=== PATIENT | female | born 1955 | race Caucasian/White ===

== ENCOUNTER 2021-06-22 14:14 | Inpatient (IN) ==
[2021-06-22] MEDS ORDERED: 0.9 % Sodium Chloride 1,000 ML IVC ONE (14:22)
[2021-06-22 14:57] LABS: Hematocrit 33.3 % (35.3-44.9); Hemoglobin 10.8 g/dL (11.5-15.4); Mean Corpuscular HGB Conc 32.4 g/dL (31.6-35.5); Mean Corpuscular Hemoglobin 27.6 pg (28.0-33.3); Mean Corpuscular Volume 85.2 fL (83.0-100.0); Mean Platelet Volume 9.8 fL (9.4-12.4); Nucleated Red Blood Cells 0.1 /100 WBC (0); Platelet Count 326 K/mcL (140-400); Red Blood Count 3.91 M/mcL (3.82-4.97); Red Cell Distribution Width 13.5 % (11.5-14.5); White Blood Count 15.5 K/mcL (4.3-11.1)
[2021-06-22 15:16] LABS: Lymphocytes # 0.9 K/mcL (0.6-4.6); Monocytes # 0.6 K/mcL (0.0-1.3); Platelet Estimate Normal (Normal)
[2021-06-22 15:19] LABS: Alanine Aminotransferase 23 Units/L (7-52); Albumin 2.8 g/dL (3.5-5.7); Albumin/Globulin Ratio 0.8 (1.1-2.2); Alkaline Phosphatase 142 Units/L (34-104); Aspartate Amino Transferase 55 Units/L (13-39); BUN/Creatinine Ratio 26 (6-26); Bilirubin,Direct 0.8 mg/dL (0.0-0.2); Bilirubin,Indirect 0.7 mg/dL (0.0-1.0); Bilirubin,Total 1.5 mg/dL (0.3-1.0); Blood Urea Nitrogen 48 mg/dL (8-23); Calcium 8.9 mg/dL (8.6-10.3); Carbon Dioxide 25 mEq/L (23-29); Chloride 94 mEq/L (98-107); Globulin 3.7 g/dL (2.4-3.5); Glucose 94 mg/dL (70-105); Osmolality,Calculated 284 (280-300); Sodium 131 mEq/L (136-145); Total Protein 6.5 g/dL (6.4-8.9); Troponin I < 0.03 ng/mL (< 0.04); eGFR For African Americans 34 (> 60); eGFR For Non-African Americans 28 (> 60)
[2021-06-22] MEDS ORDERED: *HR* Heparin 5,000 UNIT/ML VIAL IVP PRN ×2 (16:01)
[2021-06-22] MEDS ORDERED: cefTRIAXone 1,000 MG in 0.9 % Sodium Chloride Mini Bag 100 ML IVPB ONE (16:01)
[2021-06-22] MEDS ORDERED: *HR* Heparin 5,000 UNIT/ML VIAL IVP ONE (16:01)
[2021-06-22] MEDS ORDERED: Azithromycin 500 MG in 0.9 % Sodium Chloride 250 ML IVPB ONE (16:02)
[2021-06-22 16:30] LABS: Amorphous Sediment,Urine Few per hpf (None-Few); Bacteria,Urine Few per hpf (None-Few); Bilirubin,Urine Negative (Negative); Blood,Urine Moderate (Negative); Clarity,Urine Turbid (Clear); Color,Urine Yellow (Yellow); Glucose,Urine (UA) Normal (Normal); Hyaline Casts,Urine Few per lpf (None Seen); Ketones,Urine Negative (Negative); Leukocyte Esterase,Urine Negative (Negative); Nitrite,Urine Negative (Negative); PH,Urine 5.5 pH Units (5.0-8.0); Protein,Urine 30 mg/dL (Neg-Trace); RBC,Urine 0-3 per hpf (0-3); Specific Gravity,Urine 1.016 (1.010-1.025); Squamous Epithelial Cell,Urine Few per hpf (None-Few); Urobilinogen,Urine Normal (Normal); WBC,Urine 0-3 per hpf (0-3)
[2021-06-22 16:31] LABS: Amphetamine Screen,Urine Negative ng/mL (Cutoff=1000); Barbiturate Screen,Urine Negative ng/mL (Cutoff=200); Benzodiazepines Screen,Urine Positive ng/mL (Cutoff=200); Cannabinoid Screen,Urine Positive ng/mL (Cutoff = 50); Cocaine Screen,Urine Negative ng/mL (Cutoff= 300); Opiate Screen,Urine Positive ng/mL (Cutoff=300); Phencyclidine Screen,Urine Negative ng/mL (Cutoff=25)
[2021-06-22 16:54] LABS: Influenza A PCR Negative (Negative); Influenza B PCR Negative (Negative); Resp. Syncytial Virus PCR Negative (Negative)
[2021-06-22 16:56] LABS: SARS-CoV-2 by PCR (In House) Negative (Negative)
[2021-06-22] MEDS: Heparin 25,000UNIT/250ML 1/2NS 25,000 UNIT/250 ML IV.SOLN IVC SCH (17:08)
[2021-06-22 17:21] LABS: Hematocrit 34.4 % (35.3-44.9); Mean Corpuscular Hemoglobin 27.2 pg (28.0-33.3); Mean Corpuscular Volume 85.1 fL (83.0-100.0); Mean Platelet Volume 9.6 fL (9.4-12.4); Platelet Count 312 K/mcL (140-400); Red Blood Count 4.04 M/mcL (3.82-4.97); Red Cell Distribution Width 13.4 % (11.5-14.5); White Blood Count 15.6 K/mcL (4.3-11.1)
[2021-06-22 17:33] LABS: Heparin anti-factor XA UFH < 0.04 IU/mL (0.30-0.70); INR 1.3; Prothrombin Time 14.2 Seconds (9.4-12.1)
[2021-06-22] MEDS ORDERED: MOM Conc 10 ML UD.LIQ PO PRN (18:01)
[2021-06-22] MEDS ORDERED: Acetaminophen 325 MG TABLET PO PRN (18:01)
[2021-06-22] MEDS ORDERED: Naloxone 0.4 MG/ML INJ IVP PRN (18:01)
[2021-06-22] MEDS ORDERED: Ondansetron 4 MG/2 ML VIAL IVP PRN (18:01)
[2021-06-22 18:12] LABS: Creatine Kinase 883 Units/L (30-223)
[2021-06-22] MEDS: carvediloL 6.25 MG TABLET PO SCH (23:16)
[2021-06-22] MEDS: ALPRAZolam 1 MG TABLET PO SCH (23:16)
[2021-06-23 00:37] LABS: Basophils % 0.1 %; Hematocrit 32.7 % (35.3-44.9); Hemoglobin 10.3 g/dL (11.5-15.4); Immature Granulocytes % 4.3 % (0-4); Lymphocytes # 0.9 K/mcL (0.6-4.6); Lymphocytes % 3.7 %; Mean Corpuscular HGB Conc 31.5 g/dL (31.6-35.5); Mean Corpuscular Hemoglobin 27.1 pg (28.0-33.3); Mean Corpuscular Volume 86.1 fL (83.0-100.0); Mean Platelet Volume 9.8 fL (9.4-12.4); Monocytes # 0.4 K/mcL (0.0-1.3); Monocytes % 1.7 %; Neutrophils # 21.4 K/mcL (1.6-8.9); Platelet Count 283 K/mcL (140-400); Red Cell Distribution Width 13.6 % (11.5-14.5); Segmented Neutrophils % 90.2 %
[2021-06-23 00:41] LABS: White Blood Count 23.7 K/mcL (4.3-11.1)
[2021-06-23 00:53] LABS: Albumin 2.8 g/dL (3.5-5.7); Albumin/Globulin Ratio 0.7 (1.1-2.2); Bilirubin,Total 1.1 mg/dL (0.3-1.0); Calcium 8.8 mg/dL (8.6-10.3); Globulin 3.8 g/dL (2.4-3.5); Magnesium 2.1 mg/dL (1.6-2.6); Potassium 3.7 mEq/L (3.5-5.1); Total Protein 6.6 g/dL (6.4-8.9)
[2021-06-23 01:02] LABS: Platelet Estimate Normal (Normal)
[2021-06-23] MEDS: 0.9 % Sodium Chloride 1,000 ML IVC SCH ×3 (01:32→22:26)
[2021-06-23 05:50] LABS: Acinetobacter baumannii by PCR Not Detected (Not Detect); Candida albicans by PCR Not Detected (Not Detect); Candida glabrata by PCR Not Detected (Not Detect); Candida krusei by PCR Not Detected (Not Detect); Candida parapsilosis by PCR Not Detected (Not Detect); Candida tropicalis by PCR Not Detected (Not Detect); Enterobacter cloacae Cmplx PCR Not Detected (Not Detect); Enterobacteriaceae by PCR Not Detected (Not Detect); Enterococcus by PCR Not Detected (Not Detect); Escherichia coli by PCR Not Detected (Not Detect); Klebsiella oxytoca by PCR Not Detected (Not Detect); Klebsiella pneumoniae by PCR Not Detected (Not Detect); Proteus by PCR Not Detected (Not Detect); Pseudomonas aeruginosa by PCR Not Detected (Not Detect); Serratia marcescens by PCR Not Detected (Not Detect); Staphylococcus aureus by PCR Not Detected (Not Detect); Staphylococcus by PCR Not Detected (Not Detect); Streptococcus agalactiae(B)PCR Not Detected (Not Detect); Streptococcus pneumoniae PCR DETECTED (Not Detect); Streptococcus pyogenes (A) PCR Not Detected (Not Detect)
[2021-06-23] MEDS: ALPRAZolam 1 MG TABLET PO SCH ×3 (09:24→21:10)
[2021-06-23] MEDS: carvediloL 6.25 MG TABLET PO SCH ×2 (09:24→18:28)
[2021-06-23] MEDS: Aspirin Enteric Coated 81 MG Tablet PO SCH (09:24)
[2021-06-23] MEDS: Isosorbide MONOnitrate (24 HR) 30 MG TAB.ER.24H PO SCH (09:24)
[2021-06-23] MEDS: PARoxetine 20 MG TABLET PO SCH (09:24)
[2021-06-23] MEDS: Cefepime HCl 2,000 MG in 0.9 % Sodium Chloride Mini Bag 100 ML IVPB SCH ×2 (09:25→15:08)
[2021-06-23 11:00] LABS: Source,Synovial Fluid left knee
[2021-06-23 12:30] LABS: Appearance,Synovial Fluid Cloudy (Clear-Hazy); Color,Synovial Fluid Straw (Straw)
[2021-06-23] MEDS ORDERED: Perflutren Lipid Microsphere 1.3 ML in 0.9 % Sodium Chloride 8.7 ML IVP PRN (14:31)
[2021-06-23] MEDS ORDERED: Azithromycin 500 MG in 0.9 % Sodium Chloride 250 ML IVPB SCH (17:00)
[2021-06-23] MEDS ORDERED: cefTRIAXone 2,000 MG in Water for inj. (sterile) 10 ML IVP SCH (18:00)
[2021-06-23] MEDS: Heparin 25,000UNIT/250ML 1/2NS 25,000 UNIT/250 ML IV.SOLN IVC SCH (18:28)
[2021-06-24] MEDS: Cefepime HCl 2,000 MG in 0.9 % Sodium Chloride Mini Bag 100 ML IVPB SCH ×2 (00:03→07:32)
[2021-06-24 02:48] LABS: Basophils % 0.7 %; Lymphocytes % 4.6 %; Nucleated Red Blood Cells 0.1 /100 WBC (0)
[2021-06-24 02:49] LABS: Basophils # 0.2 K/mcL (0.0-0.2); Hematocrit 24.3 % (35.3-44.9); Hemoglobin 7.9 g/dL (11.5-15.4); Immature Granulocytes % 8.8 % (0-4); Lymphocytes # 1.2 K/mcL (0.6-4.6); Mean Corpuscular HGB Conc 32.5 g/dL (31.6-35.5); Mean Corpuscular Hemoglobin 27.7 pg (28.0-33.3); Mean Corpuscular Volume 85.3 fL (83.0-100.0); Mean Platelet Volume 9.7 fL (9.4-12.4); Monocytes # 0.6 K/mcL (0.0-1.3); Monocytes % 2.3 %; Neutrophils # 22.2 K/mcL (1.6-8.9); Platelet Count 247 K/mcL (140-400); Red Blood Count 2.85 M/mcL (3.82-4.97); Red Cell Distribution Width 13.9 % (11.5-14.5); Segmented Neutrophils % 83.6 %; White Blood Count 26.6 K/mcL (4.3-11.1)
[2021-06-24] MEDS: 0.9 % Sodium Chloride 1,000 ML IVC SCH ×2 (02:53→20:51)
[2021-06-24 02:57] LABS: Albumin 2.1 g/dL (3.5-5.7); Albumin/Globulin Ratio 0.7 (1.1-2.2); Bilirubin,Total 0.7 mg/dL (0.3-1.0); Calcium 7.4 mg/dL (8.6-10.3); Globulin 3.2 g/dL (2.4-3.5); Potassium 3.3 mEq/L (3.5-5.1); Total Protein 5.3 g/dL (6.4-8.9)
[2021-06-24 03:19] LABS: Platelet Estimate Normal (Normal)
[2021-06-24] MEDS ORDERED: METHYLENE BLUE IR ONE (08:45)
[2021-06-24] MEDS ORDERED: SODIUM CHLORIDE IR ONE (08:45)
[2021-06-24] MEDS: carvediloL 6.25 MG TABLET PO SCH ×2 (10:54→20:46)
[2021-06-24] MEDS: Aspirin Enteric Coated 81 MG Tablet PO SCH (12:01)
[2021-06-24] MEDS: Isosorbide MONOnitrate (24 HR) 30 MG TAB.ER.24H PO SCH (12:01)
[2021-06-24] MEDS: PARoxetine 20 MG TABLET PO SCH (12:01)
[2021-06-24] MEDS: ALPRAZolam 1 MG TABLET PO SCH ×3 (12:02→20:46)
[2021-06-24] MEDS ORDERED: Tobramycin Sulf (Sterile) 1.2 GM VIAL ONE ×2 (12:19→13:55)
[2021-06-24] MEDS ORDERED: Vancomycin 1,000 MG VIAL ONE ×2 (12:19→12:20)
[2021-06-24] MEDS ORDERED: Heparin 1,000 UNITS/500 mL 500 ML ONE (13:04)
[2021-06-24] MEDS ORDERED: *HR* Succinylcholine 200 MG/10 ML VIAL IVP ONE (13:56)
[2021-06-24] MEDS ORDERED: Sugammadex Sodium 200 MG/2 ML VIAL IV ONE (13:56)
[2021-06-24] MEDS ORDERED: *HR* Rocuronium Bromide 50 MG/5 ML VIAL ONE ×2 (13:56→18:32)
[2021-06-24] MEDS ORDERED: Lidocaine HCL 4 ML Topical Solution (Laryng-O-Jet Kit Sterile Pak) TP ONE (13:56)
[2021-06-24] MEDS ORDERED: *HR* Phenylephrine 10 MG/ML VIAL ONE (13:56)
[2021-06-24] MEDS ORDERED: Ondansetron 4 MG/2 ML VIAL ONE (13:56)
[2021-06-24] MEDS ORDERED: *HR* Magnesium Sulfate 1 GM/2 ML VIAL ONE (13:56)
[2021-06-24] MEDS ORDERED: Lidocaine -MPF 2% 5 ML VIAL ONE (13:56)
[2021-06-24] MEDS ORDERED: *HR* FentaNYL (PF) 100 MCG/2 ML VIAL ONE (13:57)
[2021-06-24] MEDS ORDERED: *HR* Midazolam HCl 2 MG/2 ML VIAL ONE (13:57)
[2021-06-24] MEDS ORDERED: dexmedeTOMIDine in 0.9 % NaCL 80 MCG/20 ML MLS ONE (13:58)
[2021-06-24] MEDS ORDERED: 0.9 % Sodium Chloride 300 ML ONE (13:59)
[2021-06-24] MEDS ORDERED: *HR* Propofol 200 MG/20 ML VIAL IVP ONE (14:20)
[2021-06-24] MEDS ORDERED: Ipratropium/Albuterol Neb 3 ML IH ONE (14:33)
[2021-06-24] MEDS ORDERED: Aminophylline 125 MG/30 ML SYRINGE IVP ONE (14:34)
[2021-06-24] MEDS ORDERED: SODIUM CHLORIDE 0.9% IVPB ONE (14:45)
[2021-06-24] MEDS ORDERED: AMINOPHYLLINE IVPB ONE (14:45)
[2021-06-24] MEDS ORDERED: Hydrogen Peroxide (Sterile) 473 ML ONE (15:00)
[2021-06-24] MEDS ORDERED: Albumin Human 5% 25.0 GM/500 ML IV.SOLN ONE (15:04)
[2021-06-24] MEDS ORDERED: Ethanol\\Acetic Acid\\Na Ace\\Ben 1,000 ML IRRIG.SOLN IR ONE ×2 (15:05→15:07)
[2021-06-24 15:06] LABS: ABG Base Excess -5 mEq/L (-2 to 3); ABG Chloride 106 mEq/L (98-107); ABG Glucose 106 mg/dL (60-95); ABG HCO3 19 mEq/L (21-27); ABG Ionized Calcium 1.11 mmol/L (1.15-1.35); ABG Oxygen Saturation 99 % (95-98); ABG PCO2 30 mmHg (35-45); ABG PH 7.42 pH Units (7.32-7.45); ABG PO2 119 mmHg (85-104); ABG TCO2 20 mEq/L (20-26)
[2021-06-24] MEDS ORDERED: Tranexamic Acid 1,000 MG/10 ML VIAL ONE ×2 (16:25→16:32)
[2021-06-24 18:12] LABS: Hematocrit 21.6 % (35.3-44.9); Hemoglobin 6.6 g/dL (11.5-15.4)
[2021-06-24] MEDS: cefTRIAXone 2,000 MG in 0.9 % Sodium Chloride Mini Bag 100 ML IVPB SCH (20:46)
[2021-06-24] MEDS ORDERED: Artificial Tears SOLN 15 ML BOTTLE BOTH EYES PRN (21:11)
[2021-06-24] MEDS ORDERED: Dexmedetomidine HCl 400 MCG/100 ML MLS IVC SCH (21:15)
[2021-06-24] MEDS: FentaNYL (PF) 1,000 MCG/100 ML IV.SOLN IVC SCH (21:22)
[2021-06-24 21:29] LABS: Hematocrit 24.2 % (35.3-44.9); Hemoglobin 7.6 g/dL (11.5-15.4)
[2021-06-25] MEDS: Artificial Tears SOLN 15 ML BOTTLE BOTH EYES SCH ×6 (00:25→20:07)
[2021-06-25 03:36] LABS: ABG Base Excess -6 mEq/L (-2 to 3); ABG HCO3 20 mEq/L (21-27); ABG Oxygen Saturation 96 % (95-98); ABG PCO2 38 mmHg (35-45); ABG PH 7.32 pH Units (7.32-7.45); ABG PO2 86 mmHg (85-104); ABG TCO2 21 mEq/L (20-26); Blood Gas Modality ASSIST CONTROL; Blood Gas VT 370 cc
[2021-06-25 04:10] LABS: Basophils # 0.2 K/mcL (0.0-0.2); Basophils % 0.7 %; Hematocrit 21.3 % (35.3-44.9); Hemoglobin 6.7 g/dL (11.5-15.4); Immature Granulocytes % 12.7 % (0-4); Lymphocytes % 4.7 %; Mean Corpuscular HGB Conc 31.5 g/dL (31.6-35.5); Mean Corpuscular Hemoglobin 28.6 pg (28.0-33.3); Monocytes # 0.7 K/mcL (0.0-1.3); Neutrophils # 19.3 K/mcL (1.6-8.9); Nucleated Red Blood Cells 0.1 /100 WBC (0); Platelet Count 163 K/mcL (140-400); Red Blood Count 2.34 M/mcL (3.82-4.97); Red Cell Distribution Width 14.4 % (11.5-14.5); Segmented Neutrophils % 78.9 %; White Blood Count 24.5 K/mcL (4.3-11.1)
[2021-06-25 04:14] LABS: Lymphocytes # 1.2 K/mcL (0.6-4.6)
[2021-06-25 04:26] LABS: Calcium 7.6 mg/dL (8.6-10.3); Potassium 3.8 mEq/L (3.5-5.1)
[2021-06-25 04:55] LABS: Platelet Estimate Normal (Normal)
[2021-06-25] MEDS: cefTRIAXone 2,000 MG in 0.9 % Sodium Chloride Mini Bag 100 ML IVPB SCH (05:14)
[2021-06-25] MEDS ORDERED: 0.9 % Sodium Chloride 250 ML ONE (05:43)
[2021-06-25] MEDS ORDERED: Povidone-Iodine 45 ML, Sodium Chloride IRRigation 1,000 ML IR ONE (06:00)
[2021-06-25] MEDS: 0.9 % Sodium Chloride 1,000 ML IVC SCH ×2 (07:35→08:18)
[2021-06-25] MEDS: carvediloL 6.25 MG TABLET PO SCH ×2 (08:00→17:46)
[2021-06-25] MEDS: Chlorhexidine Rinse 15 ML MOUTHWASH MM SCH ×2 (08:18→19:55)
[2021-06-25] MEDS: Pantoprazole 40 MG VIAL IVP SCH (08:18)
[2021-06-25] MEDS: ALPRAZolam 1 MG TABLET PO SCH ×3 (09:00→19:56)
[2021-06-25] MEDS: Isosorbide MONOnitrate (24 HR) 30 MG TAB.ER.24H PO SCH (11:45)
[2021-06-25] MEDS: PARoxetine 20 MG TABLET PO SCH (11:45)
[2021-06-25] MEDS: Aspirin Enteric Coated 81 MG Tablet PO SCH (11:45)
[2021-06-25] MEDS ORDERED: Cefepime HCl 2,000 MG in Water for inj. (sterile) 20 ML IVP SCH (12:00)
[2021-06-25 12:28] LABS: Hematocrit 27.4 % (35.3-44.9); Mean Corpuscular HGB Conc 31.4 g/dL (31.6-35.5); Mean Corpuscular Hemoglobin 29.1 pg (28.0-33.3); Mean Corpuscular Volume 92.6 fL (83.0-100.0); Mean Platelet Volume 9.9 fL (9.4-12.4); Nucleated Red Blood Cells 0.2 /100 WBC (0); Platelet Count 168 K/mcL (140-400); Red Blood Count 2.96 M/mcL (3.82-4.97); Red Cell Distribution Width 14.2 % (11.5-14.5); White Blood Count 23.3 K/mcL (4.3-11.1)
[2021-06-25 12:29] LABS: Hemoglobin 8.6 g/dL (11.5-15.4)
[2021-06-25 12:50] LABS: Lymphocytes # 0.9 K/mcL (0.6-4.6); Neutrophils # 21.4 K/mcL (1.6-8.9)
[2021-06-25 12:51] LABS: Platelet Estimate Normal (Normal)
[2021-06-25 12:54] LABS: Toxic Granulation Present (Not Present)
[2021-06-25] MEDS: cefTRIAXone 2,000 MG in Water for inj. (sterile) 20 ML IVP SCH (17:45)
[2021-06-26] MEDS: Artificial Tears SOLN 15 ML BOTTLE BOTH EYES SCH (00:56)
[2021-06-26 04:59] LABS: Hematocrit 26.6 % (35.3-44.9); Hemoglobin 8.6 g/dL (11.5-15.4); Mean Corpuscular HGB Conc 32.3 g/dL (31.6-35.5); Mean Corpuscular Hemoglobin 29.6 pg (28.0-33.3); Mean Corpuscular Volume 91.4 fL (83.0-100.0); Mean Platelet Volume 10.1 fL (9.4-12.4); Nucleated Red Blood Cells 0.2 /100 WBC (0); Platelet Count 170 K/mcL (140-400); Red Blood Count 2.91 M/mcL (3.82-4.97); Red Cell Distribution Width 14.6 % (11.5-14.5); White Blood Count 24.9 K/mcL (4.3-11.1)
[2021-06-26 05:16] LABS: Calcium 7.5 mg/dL (8.6-10.3); Potassium 3.2 mEq/L (3.5-5.1)
[2021-06-26 05:26] LABS: Lymphocytes # 2.5 K/mcL (0.6-4.6); Monocytes # 0.5 K/mcL (0.0-1.3); Neutrophils # 20.4 K/mcL (1.6-8.9); Toxic Granulation Present (Not Present)
[2021-06-26 05:28] LABS: Platelet Estimate Normal (Normal)
[2021-06-26] MEDS: cefTRIAXone 2,000 MG in Water for inj. (sterile) 20 ML IVP SCH ×2 (06:17→17:47)
[2021-06-26] MEDS: FentaNYL (PF) 1,000 MCG/100 ML IV.SOLN IVC SCH (06:17)
[2021-06-26] MEDS ORDERED: Potassium Chloride Elixir 20 MEQ/15 ML UDC PO SCH ×2 (07:20→21:00)
[2021-06-26] MEDS: ALPRAZolam 1 MG TABLET PO SCH ×3 (07:50→21:21)
[2021-06-26] MEDS: carvediloL 6.25 MG TABLET PO SCH ×2 (07:52→17:44)
[2021-06-26] MEDS: Aspirin Enteric Coated 81 MG Tablet PO SCH (07:53)
[2021-06-26] MEDS: Chlorhexidine Rinse 15 ML MOUTHWASH MM SCH ×2 (07:53→21:21)
[2021-06-26] MEDS: PARoxetine 20 MG TABLET PO SCH (07:53)
[2021-06-26] MEDS: Isosorbide MONOnitrate (24 HR) 30 MG TAB.ER.24H PO SCH (07:53)
[2021-06-26] MEDS: Pantoprazole 40 MG VIAL IVP SCH (07:54)
[2021-06-26] MEDS ORDERED: *HR* Enoxaparin 40 MG/0.4 ML SYRINGE SQ ONE ×2 (09:49→10:15)
[2021-06-26] MEDS ORDERED: Potassium Chloride Elixir 20 MEQ/15 ML UDC PO ONE (09:53)
[2021-06-26 10:46] LABS: VBG Ionized Calcium 1.13 mmol/L (1.15-1.35)
[2021-06-26 11:06] LABS: Albumin 2.3 g/dL (3.5-5.7); Albumin/Globulin Ratio 0.7 (1.1-2.2); Bilirubin,Direct 0.2 mg/dL (0.0-0.2); Bilirubin,Indirect 0.2 mg/dL (0.0-1.0); Bilirubin,Total 0.4 mg/dL (0.3-1.0); Globulin 3.1 g/dL (2.4-3.5); Total Protein 5.4 g/dL (6.4-8.9)
[2021-06-26] MEDS ORDERED: Ondansetron 4 MG/2 ML VIAL IVP PRN (19:16)
[2021-06-26] MEDS ORDERED: FentaNYL (PF) 1,000 MCG/100 ML IV.SOLN IVC SCH (19:16)
[2021-06-26] MEDS ORDERED: Perflutren Lipid Microsphere 1.3 ML in 0.9 % Sodium Chloride 8.7 ML IVP PRN (19:16)
[2021-06-26] MEDS ORDERED: Naloxone 0.4 MG/ML INJ IVP PRN (19:16)
[2021-06-26] MEDS ORDERED: Artificial Tears SOLN 15 ML BOTTLE BOTH EYES PRN (19:16)
[2021-06-26] MEDS ORDERED: MOM Conc 10 ML UD.LIQ PO PRN (19:16)
[2021-06-27 00:53] LABS: Red Cell Distribution Width 14.6 % (11.5-14.5)
[2021-06-27 00:54] LABS: Hemoglobin 8.2 g/dL (11.5-15.4); Mean Corpuscular HGB Conc 31.5 g/dL (31.6-35.5); Mean Corpuscular Hemoglobin 29.2 pg (28.0-33.3); Mean Corpuscular Volume 92.5 fL (83.0-100.0); Mean Platelet Volume 10.1 fL (9.4-12.4); Platelet Count 167 K/mcL (140-400); Red Blood Count 2.81 M/mcL (3.82-4.97); White Blood Count 26.3 K/mcL (4.3-11.1)
[2021-06-27 01:17] LABS: Calcium 7.3 mg/dL (8.6-10.3); Potassium 3.6 mEq/L (3.5-5.1)
[2021-06-27] MEDS ORDERED: *HR* Enoxaparin 40 MG/0.4 ML SYRINGE SQ SCH (06:00)
[2021-06-27] MEDS: *HR* Enoxaparin 40 MG/0.4 ML SYRINGE SQ SCH (06:53)
[2021-06-27] MEDS: cefTRIAXone 2,000 MG in Water for inj. (sterile) 20 ML IVP SCH ×2 (06:53→17:22)
[2021-06-27] MEDS: ALPRAZolam 1 MG TABLET PO SCH ×3 (08:37→22:04)
[2021-06-27] MEDS: Aspirin Enteric Coated 81 MG Tablet PO SCH (08:37)
[2021-06-27] MEDS: carvediloL 6.25 MG TABLET PO SCH ×2 (08:37→17:22)
[2021-06-27] MEDS: Chlorhexidine Rinse 15 ML MOUTHWASH MM SCH ×2 (08:37→22:08)
[2021-06-27] MEDS: Isosorbide MONOnitrate (24 HR) 30 MG TAB.ER.24H PO SCH (08:37)
[2021-06-27] MEDS: PARoxetine 20 MG TABLET PO SCH (08:37)
[2021-06-27] MEDS ORDERED: Pantoprazole 40 MG VIAL IVP SCH (09:00)
[2021-06-27] MEDS: Acetaminophen 325 MG TABLET PO PRN (18:24)
[2021-06-28 05:20] LABS: Hematocrit 26.7 % (35.3-44.9); Hemoglobin 8.5 g/dL (11.5-15.4); Mean Corpuscular HGB Conc 31.8 g/dL (31.6-35.5); Mean Corpuscular Hemoglobin 29.1 pg (28.0-33.3); Mean Corpuscular Volume 91.4 fL (83.0-100.0); Mean Platelet Volume 10.7 fL (9.4-12.4); Platelet Count 202 K/mcL (140-400); Red Blood Count 2.92 M/mcL (3.82-4.97); Red Cell Distribution Width 14.7 % (11.5-14.5); White Blood Count 24.3 K/mcL (4.3-11.1)
[2021-06-28 05:33] LABS: BUN/Creatinine Ratio 17 (6-26); Blood Urea Nitrogen 18 mg/dL (8-23); Calcium 7.2 mg/dL (8.6-10.3); Carbon Dioxide 22 mEq/L (23-29); Chloride 102 mEq/L (98-107); Glucose 79 mg/dL (70-105); Magnesium 1.4 mg/dL (1.6-2.6); Osmolality,Calculated 271 (280-300); Phosphorous 2.4 mg/dL (2.7-4.5); Potassium 3.4 mEq/L (3.5-5.1); Sodium 130 mEq/L (136-145); eGFR For African Americans > 60 (> 60); eGFR For Non-African Americans 52 (> 60)
[2021-06-28] MEDS: cefTRIAXone 2,000 MG in Water for inj. (sterile) 20 ML IVP SCH (06:28)
[2021-06-28] MEDS: *HR* Enoxaparin 40 MG/0.4 ML SYRINGE SQ SCH (06:28)
[2021-06-28] MEDS ORDERED: Potassium Phosphate 44 MEQ in 0.9 % Sodium Chloride 250 ML IVPB ONE (07:17)
[2021-06-28] MEDS: PARoxetine 20 MG TABLET PO SCH (08:10)
[2021-06-28] MEDS: ALPRAZolam 1 MG TABLET PO SCH ×3 (08:10→21:34)
[2021-06-28] MEDS: carvediloL 6.25 MG TABLET PO SCH ×2 (08:10→15:46)
[2021-06-28] MEDS: Chlorhexidine Rinse 15 ML MOUTHWASH MM SCH ×2 (08:10→21:34)
[2021-06-28] MEDS: Isosorbide MONOnitrate (24 HR) 30 MG TAB.ER.24H PO SCH (08:10)
[2021-06-28] MEDS: Aspirin Enteric Coated 81 MG Tablet PO SCH (08:10)
[2021-06-28] MEDS: Acetaminophen 325 MG TABLET PO PRN (15:46)
[2021-06-29 05:09] LABS: Hematocrit 24.7 % (35.3-44.9); Hemoglobin 8.1 g/dL (11.5-15.4); Mean Corpuscular HGB Conc 32.8 g/dL (31.6-35.5); Mean Corpuscular Hemoglobin 29.3 pg (28.0-33.3); Mean Corpuscular Volume 89.5 fL (83.0-100.0); Mean Platelet Volume 10.4 fL (9.4-12.4); Platelet Count 226 K/mcL (140-400); Red Blood Count 2.76 M/mcL (3.82-4.97); Red Cell Distribution Width 14.7 % (11.5-14.5); White Blood Count 20.8 K/mcL (4.3-11.1)
[2021-06-29 05:36] LABS: BUN/Creatinine Ratio 17 (6-26); Blood Urea Nitrogen 17 mg/dL (8-23); Carbon Dioxide 21 mEq/L (23-29); Chloride 99 mEq/L (98-107); Glucose 120 mg/dL (70-105); Magnesium 1.7 mg/dL (1.6-2.6); Osmolality,Calculated 267 (280-300); Phosphorous 3.6 mg/dL (2.7-4.5); Potassium 3.4 mEq/L (3.5-5.1); Sodium 127 mEq/L (136-145); eGFR For African Americans > 60 (> 60); eGFR For Non-African Americans 56 (> 60)
[2021-06-29] MEDS: *HR* Enoxaparin 40 MG/0.4 ML SYRINGE SQ SCH (06:19)
[2021-06-29] MEDS: cefTRIAXone 2,000 MG in 0.9 % Sodium Chloride Mini Bag 100 ML IVPB SCH (08:44)
[2021-06-29] MEDS: ALPRAZolam 1 MG TABLET PO SCH ×3 (08:47→21:00)
[2021-06-29] MEDS: Aspirin Enteric Coated 81 MG Tablet PO SCH (08:47)
[2021-06-29] MEDS: carvediloL 6.25 MG TABLET PO SCH ×2 (08:47→17:41)
[2021-06-29] MEDS: Isosorbide MONOnitrate (24 HR) 30 MG TAB.ER.24H PO SCH (08:48)
[2021-06-29] MEDS: PARoxetine 20 MG TABLET PO SCH (10:02)
[2021-06-29] MEDS: Chlorhexidine Rinse 15 ML MOUTHWASH MM SCH ×2 (13:01→21:01)
[2021-06-29] MEDS: Sennosides/Docusate Sodium TABLET PO SCH (21:00)
[2021-06-29] MEDS: Acetaminophen 325 MG TABLET PO PRN (21:01)
[2021-06-30] MEDS: *HR* Enoxaparin 40 MG/0.4 ML SYRINGE SQ SCH (05:30)
[2021-06-30] MEDS: ALPRAZolam 1 MG TABLET PO SCH ×3 (07:37→21:04)
[2021-06-30] MEDS: Sennosides/Docusate Sodium TABLET PO SCH ×2 (07:37→21:04)
[2021-06-30] MEDS: cefTRIAXone 2,000 MG in 0.9 % Sodium Chloride Mini Bag 100 ML IVPB SCH (07:37)
[2021-06-30] MEDS: PARoxetine 20 MG TABLET PO SCH (07:37)
[2021-06-30] MEDS: Isosorbide MONOnitrate (24 HR) 30 MG TAB.ER.24H PO SCH (07:37)
[2021-06-30] MEDS: Chlorhexidine Rinse 15 ML MOUTHWASH MM SCH ×2 (07:37→21:04)
[2021-06-30] MEDS: carvediloL 6.25 MG TABLET PO SCH ×2 (07:37→16:42)
[2021-06-30] MEDS: Aspirin Enteric Coated 81 MG Tablet PO SCH (07:37)
[2021-06-30 08:29] LABS: Hematocrit 27.7 % (35.3-44.9); Hemoglobin 8.9 g/dL (11.5-15.4); Mean Corpuscular HGB Conc 32.1 g/dL (31.6-35.5); Mean Corpuscular Hemoglobin 29.7 pg (28.0-33.3); Mean Corpuscular Volume 92.3 fL (83.0-100.0); Mean Platelet Volume 10.3 fL (9.4-12.4); Platelet Count 298 K/mcL (140-400); Red Cell Distribution Width 14.7 % (11.5-14.5); White Blood Count 19.6 K/mcL (4.3-11.1)
[2021-06-30 08:43] LABS: Magnesium 1.5 mg/dL (1.6-2.6); Phosphorous 2.7 mg/dL (2.7-4.5)
[2021-06-30 09:04] LABS: BUN/Creatinine Ratio 14 (6-26); Blood Urea Nitrogen 14 mg/dL (8-23); Calcium 7.8 mg/dL (8.6-10.3); Carbon Dioxide 23 mEq/L (23-29); Chloride 97 mEq/L (98-107); Glucose 93 mg/dL (70-105); Osmolality,Calculated 262 (280-300); Potassium 4.3 mEq/L (3.5-5.1); Sodium 126 mEq/L (136-145); eGFR For African Americans > 60 (> 60); eGFR For Non-African Americans 55 (> 60)
[2021-06-30 10:16] LABS: Eosinophils # 0.4 K/mcL (0.0-0.6); Lymphocytes # 1.6 K/mcL (0.6-4.6); Monocytes # 0.4 K/mcL (0.0-1.3); Neutrophils # 16.9 K/mcL (1.6-8.9); Platelet Estimate Normal (Normal)
[2021-06-30] MEDS ORDERED: Furosemide 20 MG TABLET PO PRN (12:53)
[2021-07-01 05:01] LABS: Hematocrit 26.5 % (35.3-44.9); Hemoglobin 8.3 g/dL (11.5-15.4); Mean Corpuscular HGB Conc 31.3 g/dL (31.6-35.5); Mean Corpuscular Hemoglobin 28.6 pg (28.0-33.3); Mean Corpuscular Volume 91.4 fL (83.0-100.0); Platelet Count 315 K/mcL (140-400); Red Cell Distribution Width 14.9 % (11.5-14.5); White Blood Count 19.1 K/mcL (4.3-11.1)
[2021-07-01 05:22] LABS: Magnesium 1.8 mg/dL (1.6-2.6)
[2021-07-01 05:24] LABS: BUN/Creatinine Ratio 15 (6-26); Blood Urea Nitrogen 14 mg/dL (8-23); Calcium 7.8 mg/dL (8.6-10.3); Carbon Dioxide 21 mEq/L (23-29); Chloride 94 mEq/L (98-107); Glucose 91 mg/dL (70-105); Osmolality,Calculated 262 (280-300); Sodium 126 mEq/L (136-145); eGFR For African Americans > 60 (> 60); eGFR For Non-African Americans 59 (> 60)
[2021-07-01] MEDS: *HR* Enoxaparin 40 MG/0.4 ML SYRINGE SQ SCH (05:40)
[2021-07-01] MEDS: Aspirin Enteric Coated 81 MG Tablet PO SCH (07:40)
[2021-07-01] MEDS: Sennosides/Docusate Sodium TABLET PO SCH ×2 (07:40→20:26)
[2021-07-01] MEDS: carvediloL 6.25 MG TABLET PO SCH ×2 (07:40→15:48)
[2021-07-01] MEDS: PARoxetine 20 MG TABLET PO SCH (07:40)
[2021-07-01] MEDS: ALPRAZolam 1 MG TABLET PO SCH ×3 (07:40→20:26)
[2021-07-01] MEDS: Chlorhexidine Rinse 15 ML MOUTHWASH MM SCH ×2 (07:41→20:26)
[2021-07-01] MEDS: cefTRIAXone 2,000 MG in 0.9 % Sodium Chloride Mini Bag 100 ML IVPB SCH (07:41)
[2021-07-01] MEDS: Isosorbide MONOnitrate (24 HR) 30 MG TAB.ER.24H PO SCH (07:41)
[2021-07-02 08:11] LABS: Basophils # 0.1 K/mcL (0.0-0.2); Basophils % 0.3 %; Eosinophils # 0.1 K/mcL (0.0-0.6); Eosinophils % 0.4 %; Hematocrit 27.5 % (35.3-44.9); Hemoglobin 8.5 g/dL (11.5-15.4); Lymphocytes % 5.7 %; Mean Corpuscular HGB Conc 30.9 g/dL (31.6-35.5); Mean Corpuscular Hemoglobin 28.3 pg (28.0-33.3); Mean Corpuscular Volume 91.7 fL (83.0-100.0); Monocytes # 0.6 K/mcL (0.0-1.3); Monocytes % 3.3 %; Neutrophils # 14.7 K/mcL (1.6-8.9); Platelet Count 340 K/mcL (140-400); Red Cell Distribution Width 15.1 % (11.5-14.5); Segmented Neutrophils % 86.3 %; White Blood Count 17.1 K/mcL (4.3-11.1)
[2021-07-02 08:13] LABS: BUN/Creatinine Ratio 18 (6-26); Blood Urea Nitrogen 19 mg/dL (8-23); Calcium 7.9 mg/dL (8.6-10.3); Carbon Dioxide 22 mEq/L (23-29); Chloride 93 mEq/L (98-107); Glucose 86 mg/dL (70-105); Magnesium 1.7 mg/dL (1.6-2.6); Osmolality,Calculated 260 (280-300); Phosphorous 4.1 mg/dL (2.7-4.5); Potassium 4.9 mEq/L (3.5-5.1); Sodium 124 mEq/L (136-145); eGFR For African Americans > 60 (> 60); eGFR For Non-African Americans 54 (> 60)
[2021-07-02] MEDS: Sennosides/Docusate Sodium TABLET PO SCH ×2 (08:44→20:19)
[2021-07-02] MEDS: ALPRAZolam 1 MG TABLET PO SCH ×3 (08:44→20:20)
[2021-07-02] MEDS: Aspirin Enteric Coated 81 MG Tablet PO SCH (08:44)
[2021-07-02] MEDS: cefTRIAXone 2,000 MG in 0.9 % Sodium Chloride Mini Bag 100 ML IVPB SCH (08:45)
[2021-07-02] MEDS: Isosorbide MONOnitrate (24 HR) 30 MG TAB.ER.24H PO SCH (08:45)
[2021-07-02] MEDS: Chlorhexidine Rinse 15 ML MOUTHWASH MM SCH ×2 (08:45→20:20)
[2021-07-02] MEDS: carvediloL 6.25 MG TABLET PO SCH ×2 (08:45→17:40)
[2021-07-02] MEDS: PARoxetine 20 MG TABLET PO SCH (08:45)
[2021-07-02] MEDS: *HR* Enoxaparin 40 MG/0.4 ML SYRINGE SQ SCH (08:46)
[2021-07-02 09:15] LABS: C-Reactive Protein 223 mg/L (Less than 10)
[2021-07-02] MEDS ORDERED: Lactulose Oral Soln 20 GM/30 ML UDC PO PRN (11:13)
[2021-07-02] MEDS ORDERED: 0.9 % Sodium Chloride 1,000 ML IVC SCH (13:45)
[2021-07-02] MEDS: Acetaminophen 325 MG TABLET PO PRN (20:20)
[2021-07-03] MEDS: *HR* Enoxaparin 40 MG/0.4 ML SYRINGE SQ SCH (05:44)
[2021-07-03 07:03] LABS: Basophils % 0.2 %; Eosinophils % 0.3 %; Hematocrit 25.6 % (35.3-44.9); Hemoglobin 8.2 g/dL (11.5-15.4); Immature Granulocytes % 2.3 % (0-4); Lymphocytes # 0.8 K/mcL (0.6-4.6); Lymphocytes % 5.1 %; Mean Corpuscular Hemoglobin 29.4 pg (28.0-33.3); Mean Corpuscular Volume 91.8 fL (83.0-100.0); Mean Platelet Volume 10.1 fL (9.4-12.4); Monocytes # 0.5 K/mcL (0.0-1.3); Monocytes % 3.3 %; Neutrophils # 14.1 K/mcL (1.6-8.9); Platelet Count 352 K/mcL (140-400); Red Blood Count 2.79 M/mcL (3.82-4.97); Red Cell Distribution Width 15.2 % (11.5-14.5); Segmented Neutrophils % 88.8 %; White Blood Count 15.9 K/mcL (4.3-11.1)
[2021-07-03 07:26] LABS: BUN/Creatinine Ratio 18 (6-26); Blood Urea Nitrogen 18 mg/dL (8-23); Calcium 7.9 mg/dL (8.6-10.3); Carbon Dioxide 23 mEq/L (23-29); Chloride 95 mEq/L (98-107); Glucose 104 mg/dL (70-105); Magnesium 1.7 mg/dL (1.6-2.6); Osmolality,Calculated 266 (280-300); Phosphorous 3.5 mg/dL (2.7-4.5); Potassium 4.2 mEq/L (3.5-5.1); Sodium 127 mEq/L (136-145); eGFR For African Americans > 60 (> 60); eGFR For Non-African Americans 57 (> 60)
[2021-07-03 07:38] LABS: Thyroid Stimulating Hormone 2.944 mcIU/mL (0.340-5.600)
[2021-07-03] MEDS: Chlorhexidine Rinse 15 ML MOUTHWASH MM SCH (07:41)
[2021-07-03] MEDS: cefTRIAXone 2,000 MG in 0.9 % Sodium Chloride Mini Bag 100 ML IVPB SCH (07:41)
[2021-07-03] MEDS: Aspirin Enteric Coated 81 MG Tablet PO SCH (07:42)
[2021-07-03] MEDS: Sennosides/Docusate Sodium TABLET PO SCH ×2 (07:42→20:45)
[2021-07-03] MEDS: Isosorbide MONOnitrate (24 HR) 30 MG TAB.ER.24H PO SCH (07:42)
[2021-07-03] MEDS: PARoxetine 20 MG TABLET PO SCH (07:42)
[2021-07-03] MEDS: ALPRAZolam 1 MG TABLET PO SCH ×3 (07:42→20:45)
[2021-07-03] MEDS: carvediloL 6.25 MG TABLET PO SCH ×2 (07:42→16:20)
[2021-07-03] MEDS ORDERED: 0.9 % Sodium Chloride 1,000 ML IVC SCH (13:15)
[2021-07-04] MEDS: *HR* Enoxaparin 40 MG/0.4 ML SYRINGE SQ SCH (05:19)
[2021-07-04 05:59] LABS: BUN/Creatinine Ratio 16 (6-26); Blood Urea Nitrogen 15 mg/dL (8-23); Carbon Dioxide 24 mEq/L (23-29); Chloride 95 mEq/L (98-107); Glucose 99 mg/dL (70-105); Osmolality,Calculated 261 (280-300); Potassium 3.8 mEq/L (3.5-5.1); Sodium 125 mEq/L (136-145); eGFR For African Americans > 60 (> 60); eGFR For Non-African Americans > 60 (> 60)
[2021-07-04] MEDS: cefTRIAXone 2,000 MG in 0.9 % Sodium Chloride Mini Bag 100 ML IVPB SCH (07:30)
[2021-07-04] MEDS: ALPRAZolam 1 MG TABLET PO SCH ×3 (07:31→20:46)
[2021-07-04] MEDS: PARoxetine 20 MG TABLET PO SCH (07:32)
[2021-07-04] MEDS: Isosorbide MONOnitrate (24 HR) 30 MG TAB.ER.24H PO SCH (07:32)
[2021-07-04] MEDS: Sennosides/Docusate Sodium TABLET PO SCH ×2 (07:32→20:37)
[2021-07-04] MEDS: Aspirin Enteric Coated 81 MG Tablet PO SCH (07:32)
[2021-07-04] MEDS: carvediloL 6.25 MG TABLET PO SCH ×2 (07:32→18:06)
[2021-07-04 11:11] LABS: Bilirubin,Urine Negative (Negative); Blood,Urine Small (Negative); Budding Yeast,Urine Moderate per hpf (None Seen); Clarity,Urine Clear (Clear); Color,Urine Light-Yellow (Yellow); Glucose,Urine (UA) Normal (Normal); Ketones,Urine Negative (Negative); Leukocyte Esterase,Urine Negative (Negative); Nitrite,Urine Negative (Negative); PH,Urine 6.5 pH Units (5.0-8.0); Protein,Urine Trace mg/dL (Neg-Trace); RBC,Urine 0-3 per hpf (0-3); Specific Gravity,Urine 1.011 (1.010-1.025); Squamous Epithelial Cell,Urine Few per hpf (None-Few); Urobilinogen,Urine Normal (Normal); WBC,Urine 0-3 per hpf (0-3)
[2021-07-04] MEDS: 0.9 % Sodium Chloride 1,000 ML IVC SCH (20:38)
[2021-07-05] MEDS: *HR* Enoxaparin 40 MG/0.4 ML SYRINGE SQ SCH (06:15)
[2021-07-05] MEDS: ALPRAZolam 1 MG TABLET PO SCH ×3 (08:18→20:41)
[2021-07-05] MEDS: cefTRIAXone 2,000 MG in 0.9 % Sodium Chloride Mini Bag 100 ML IVPB SCH (08:18)
[2021-07-05] MEDS: Aspirin Enteric Coated 81 MG Tablet PO SCH (08:19)
[2021-07-05] MEDS: carvediloL 6.25 MG TABLET PO SCH ×2 (08:19→19:01)
[2021-07-05] MEDS: Isosorbide MONOnitrate (24 HR) 30 MG TAB.ER.24H PO SCH (08:19)
[2021-07-05] MEDS: PARoxetine 20 MG TABLET PO SCH (08:19)
[2021-07-05] MEDS: Sennosides/Docusate Sodium TABLET PO SCH ×2 (08:19→20:41)
[2021-07-05 09:49] LABS: Basophils % 0.2 %; Eosinophils % 0.2 %; Hematocrit 23.4 % (35.3-44.9); Hemoglobin 7.3 g/dL (11.5-15.4); Immature Granulocytes % 1.9 % (0-4); Lymphocytes # 0.7 K/mcL (0.6-4.6); Lymphocytes % 6.5 %; Mean Corpuscular HGB Conc 31.2 g/dL (31.6-35.5); Mean Corpuscular Hemoglobin 28.4 pg (28.0-33.3); Mean Corpuscular Volume 91.1 fL (83.0-100.0); Mean Platelet Volume 9.7 fL (9.4-12.4); Monocytes # 0.5 K/mcL (0.0-1.3); Monocytes % 3.9 %; Platelet Count 277 K/mcL (140-400); Red Blood Count 2.57 M/mcL (3.82-4.97); Red Cell Distribution Width 15.1 % (11.5-14.5); Segmented Neutrophils % 87.3 %; White Blood Count 11.4 K/mcL (4.3-11.1)
[2021-07-05 10:20] LABS: BUN/Creatinine Ratio 18 (6-26); Blood Urea Nitrogen 14 mg/dL (8-23); Calcium 7.7 mg/dL (8.6-10.3); Carbon Dioxide 23 mEq/L (23-29); Chloride 97 mEq/L (98-107); Glucose 132 mg/dL (70-105); Osmolality,Calculated 266 (280-300); Potassium 3.5 mEq/L (3.5-5.1); Sodium 127 mEq/L (136-145); eGFR For African Americans > 60 (> 60); eGFR For Non-African Americans > 60 (> 60)
[2021-07-06 03:40] LABS: Hemoglobin 7.2 g/dL (11.5-15.4)
[2021-07-06 03:53] LABS: BUN/Creatinine Ratio 18 (6-26); Blood Urea Nitrogen 13 mg/dL (8-23); Calcium 7.7 mg/dL (8.6-10.3); Carbon Dioxide 21 mEq/L (23-29); Chloride 96 mEq/L (98-107); Glucose 107 mg/dL (70-105); Osmolality,Calculated 259 (280-300); Potassium 3.2 mEq/L (3.5-5.1); Sodium 124 mEq/L (136-145); eGFR For African Americans > 60 (> 60); eGFR For Non-African Americans > 60 (> 60)
[2021-07-06 04:21] LABS: Hematocrit 22.7 % (35.3-44.9); Mean Corpuscular HGB Conc 31.7 g/dL (31.6-35.5); Mean Corpuscular Hemoglobin 28.8 pg (28.0-33.3); Mean Corpuscular Volume 90.8 fL (83.0-100.0); Mean Platelet Volume 9.8 fL (9.4-12.4); Platelet Count 266 K/mcL (140-400); Red Cell Distribution Width 15.1 % (11.5-14.5); White Blood Count 10.6 K/mcL (4.3-11.1)
[2021-07-06] MEDS: *HR* Enoxaparin 40 MG/0.4 ML SYRINGE SQ SCH (06:12)
[2021-07-06] MEDS ORDERED: 0.9 % Sodium Chloride 1,000 ML IVC ONE ×2 (07:20→19:09)
[2021-07-06] MEDS: Sennosides/Docusate Sodium TABLET PO SCH ×2 (08:04→19:38)
[2021-07-06] MEDS: PARoxetine 20 MG TABLET PO SCH (08:04)
[2021-07-06] MEDS: Aspirin Enteric Coated 81 MG Tablet PO SCH (08:04)
[2021-07-06] MEDS: carvediloL 6.25 MG TABLET PO SCH ×2 (08:04→18:01)
[2021-07-06] MEDS: cefTRIAXone 2,000 MG in 0.9 % Sodium Chloride Mini Bag 100 ML IVPB SCH (08:05)
[2021-07-06] MEDS: ALPRAZolam 1 MG TABLET PO SCH ×3 (08:05→19:38)
[2021-07-06] MEDS: Isosorbide MONOnitrate (24 HR) 30 MG TAB.ER.24H PO SCH (08:05)
[2021-07-06 15:51] LABS: BUN/Creatinine Ratio 17 (6-26); Blood Urea Nitrogen 12 mg/dL (8-23); Calcium 7.4 mg/dL (8.6-10.3); Carbon Dioxide 21 mEq/L (23-29); Chloride 97 mEq/L (98-107); Glucose 119 mg/dL (70-105); Osmolality,Calculated 261 (280-300); Potassium 3.1 mEq/L (3.5-5.1); Sodium 125 mEq/L (136-145); eGFR For African Americans > 60 (> 60); eGFR For Non-African Americans > 60 (> 60)
[2021-07-07] MEDS ORDERED: Milk and Molasses Enema 200 ML RC ONE (04:43)
[2021-07-07 05:25] LABS: Hematocrit 27.1 % (35.3-44.9); Hemoglobin 8.2 g/dL (11.5-15.4); Mean Corpuscular HGB Conc 30.3 g/dL (31.6-35.5); Mean Corpuscular Volume 92.5 fL (83.0-100.0); Mean Platelet Volume 9.4 fL (9.4-12.4); Platelet Count 277 K/mcL (140-400); Red Blood Count 2.93 M/mcL (3.82-4.97); White Blood Count 10.3 K/mcL (4.3-11.1)
[2021-07-07 05:36] LABS: BUN/Creatinine Ratio 17 (6-26); Blood Urea Nitrogen 11 mg/dL (8-23); Calcium 7.7 mg/dL (8.6-10.3); Carbon Dioxide 21 mEq/L (23-29); Chloride 98 mEq/L (98-107); Glucose 115 mg/dL (70-105); Osmolality,Calculated 260 (280-300); Potassium 3.4 mEq/L (3.5-5.1); Sodium 125 mEq/L (136-145); eGFR For African Americans > 60 (> 60); eGFR For Non-African Americans > 60 (> 60)
[2021-07-07] MEDS: *HR* Enoxaparin 40 MG/0.4 ML SYRINGE SQ SCH (06:24)
[2021-07-07] MEDS: 0.9 % Sodium Chloride 1,000 ML IVC SCH (07:31)
[2021-07-07] MEDS ORDERED: Tolvaptan 15 MG TABLET PO ONE (08:12)
[2021-07-07] MEDS: cefTRIAXone 2,000 MG in 0.9 % Sodium Chloride Mini Bag 100 ML IVPB SCH (08:48)
[2021-07-07] MEDS: PARoxetine 20 MG TABLET PO SCH (08:49)
[2021-07-07] MEDS: ALPRAZolam 1 MG TABLET PO SCH ×3 (08:49→19:35)
[2021-07-07] MEDS: carvediloL 6.25 MG TABLET PO SCH ×2 (08:49→16:00)
[2021-07-07] MEDS: Isosorbide MONOnitrate (24 HR) 30 MG TAB.ER.24H PO SCH (08:49)
[2021-07-07] MEDS: Sennosides/Docusate Sodium TABLET PO SCH ×2 (08:49→19:36)
[2021-07-07] MEDS: Aspirin Enteric Coated 81 MG Tablet PO SCH (08:49)
[2021-07-07 14:09] LABS: BUN/Creatinine Ratio 17 (6-26); Blood Urea Nitrogen 11 mg/dL (8-23); Calcium 7.9 mg/dL (8.6-10.3); Carbon Dioxide 20 mEq/L (23-29); Chloride 97 mEq/L (98-107); Glucose 128 mg/dL (70-105); Osmolality,Calculated 261 (280-300); Sodium 125 mEq/L (136-145); eGFR For African Americans > 60 (> 60); eGFR For Non-African Americans > 60 (> 60)
[2021-07-08] MEDS: *HR* Enoxaparin 40 MG/0.4 ML SYRINGE SQ SCH (05:01)
[2021-07-08 05:06] LABS: Basophils % 0.2 %; Eosinophils % 0.1 %; Hematocrit 25.1 % (35.3-44.9); Immature Granulocytes % 1.5 % (0-4); Lymphocytes # 0.7 K/mcL (0.6-4.6); Lymphocytes % 7.1 %; Mean Corpuscular HGB Conc 31.9 g/dL (31.6-35.5); Mean Corpuscular Hemoglobin 28.9 pg (28.0-33.3); Mean Corpuscular Volume 90.6 fL (83.0-100.0); Mean Platelet Volume 9.6 fL (9.4-12.4); Monocytes # 0.5 K/mcL (0.0-1.3); Monocytes % 5.2 %; Neutrophils # 8.9 K/mcL (1.6-8.9); Platelet Count 252 K/mcL (140-400); Red Blood Count 2.77 M/mcL (3.82-4.97); Red Cell Distribution Width 15.1 % (11.5-14.5); Segmented Neutrophils % 85.9 %; White Blood Count 10.3 K/mcL (4.3-11.1)
[2021-07-08 05:22] LABS: BUN/Creatinine Ratio 14 (6-26); Blood Urea Nitrogen 10 mg/dL (8-23); C-Reactive Protein 161 mg/L (Less than 10); Calcium 7.9 mg/dL (8.6-10.3); Carbon Dioxide 19 mEq/L (23-29); Chloride 99 mEq/L (98-107); Glucose 126 mg/dL (70-105); Osmolality,Calculated 265 (280-300); Potassium 3.4 mEq/L (3.5-5.1); Sodium 127 mEq/L (136-145); eGFR For African Americans > 60 (> 60); eGFR For Non-African Americans > 60 (> 60)
[2021-07-08] MEDS: PARoxetine 20 MG TABLET PO SCH (08:03)
[2021-07-08] MEDS: Aspirin Enteric Coated 81 MG Tablet PO SCH (08:03)
[2021-07-08] MEDS: Sennosides/Docusate Sodium TABLET PO SCH ×2 (08:03→21:32)
[2021-07-08] MEDS: cefTRIAXone 2,000 MG in 0.9 % Sodium Chloride Mini Bag 100 ML IVPB SCH (08:03)
[2021-07-08] MEDS: ALPRAZolam 1 MG TABLET PO SCH ×3 (08:04→21:32)
[2021-07-08] MEDS: Isosorbide MONOnitrate (24 HR) 30 MG TAB.ER.24H PO SCH (08:04)
[2021-07-08] MEDS: carvediloL 6.25 MG TABLET PO SCH ×2 (08:04→16:24)
[2021-07-08] MEDS ORDERED: Tolvaptan 15 MG TABLET PO ONE (13:21)
[2021-07-09 03:29] LABS: Hematocrit 23.6 % (35.3-44.9); Hemoglobin 7.4 g/dL (11.5-15.4); Mean Corpuscular HGB Conc 31.4 g/dL (31.6-35.5); Mean Corpuscular Hemoglobin 28.5 pg (28.0-33.3); Mean Corpuscular Volume 90.8 fL (83.0-100.0); Mean Platelet Volume 9.4 fL (9.4-12.4); Platelet Count 211 K/mcL (140-400); Red Cell Distribution Width 15.3 % (11.5-14.5); White Blood Count 10.2 K/mcL (4.3-11.1)
[2021-07-09 03:49] LABS: BUN/Creatinine Ratio 15 (6-26); Blood Urea Nitrogen 12 mg/dL (8-23); Carbon Dioxide 20 mEq/L (23-29); Chloride 104 mEq/L (98-107); Glucose 115 mg/dL (70-105); Magnesium 1.6 mg/dL (1.6-2.6); Osmolality,Calculated 273 (280-300); Potassium 3.7 mEq/L (3.5-5.1); Sodium 131 mEq/L (136-145); eGFR For African Americans > 60 (> 60); eGFR For Non-African Americans > 60 (> 60)
[2021-07-09] MEDS: *HR* Enoxaparin 40 MG/0.4 ML SYRINGE SQ SCH (05:31)
[2021-07-09] MEDS: carvediloL 6.25 MG TABLET PO SCH ×2 (08:39→16:06)
[2021-07-09] MEDS: ALPRAZolam 1 MG TABLET PO SCH ×3 (08:39→20:41)
[2021-07-09] MEDS: cefTRIAXone 2,000 MG in 0.9 % Sodium Chloride Mini Bag 100 ML IVPB SCH (08:39)
[2021-07-09] MEDS: PARoxetine 20 MG TABLET PO SCH (08:39)
[2021-07-09] MEDS: Isosorbide MONOnitrate (24 HR) 30 MG TAB.ER.24H PO SCH (08:39)
[2021-07-09] MEDS: Aspirin Enteric Coated 81 MG Tablet PO SCH (08:39)
[2021-07-09] MEDS: Sennosides/Docusate Sodium TABLET PO SCH ×2 (08:39→20:41)
[2021-07-10 04:43] LABS: Hematocrit 23.4 % (35.3-44.9); Hemoglobin 7.4 g/dL (11.5-15.4); Mean Corpuscular HGB Conc 31.6 g/dL (31.6-35.5); Mean Corpuscular Hemoglobin 28.8 pg (28.0-33.3); Mean Corpuscular Volume 91.1 fL (83.0-100.0); Mean Platelet Volume 9.7 fL (9.4-12.4); Platelet Count 229 K/mcL (140-400); Red Blood Count 2.57 M/mcL (3.82-4.97); Red Cell Distribution Width 15.5 % (11.5-14.5); White Blood Count 10.1 K/mcL (4.3-11.1)
[2021-07-10 04:58] LABS: BUN/Creatinine Ratio 16 (6-26); Blood Urea Nitrogen 11 mg/dL (8-23); Calcium 7.8 mg/dL (8.6-10.3); Carbon Dioxide 21 mEq/L (23-29); Chloride 101 mEq/L (98-107); Glucose 122 mg/dL (70-105); Osmolality,Calculated 269 (280-300); Potassium 3.2 mEq/L (3.5-5.1); Sodium 129 mEq/L (136-145); eGFR For African Americans > 60 (> 60); eGFR For Non-African Americans > 60 (> 60)
[2021-07-10] MEDS: *HR* Enoxaparin 40 MG/0.4 ML SYRINGE SQ SCH (06:32)
[2021-07-10] MEDS: ALPRAZolam 1 MG TABLET PO SCH ×2 (07:47→14:22)
[2021-07-10] MEDS: PARoxetine 20 MG TABLET PO SCH (07:47)
[2021-07-10] MEDS: Isosorbide MONOnitrate (24 HR) 30 MG TAB.ER.24H PO SCH (07:47)
[2021-07-10] MEDS: Aspirin Enteric Coated 81 MG Tablet PO SCH (07:47)
[2021-07-10] MEDS: Sennosides/Docusate Sodium TABLET PO SCH (07:47)
[2021-07-10] MEDS: cefTRIAXone 2,000 MG in 0.9 % Sodium Chloride Mini Bag 100 ML IVPB SCH (07:48)
[2021-07-10] MEDS: carvediloL 6.25 MG TABLET PO SCH (07:48)
[2021-07-10] MEDS ORDERED: Tolvaptan 15 MG TABLET PO ONE (08:09)
[2021-07-10 10:35] VITALS: TEMP 98; O2SAT 96
[2021-07-10 11:47] LABS: Influenza A PCR Negative (Negative); Influenza B PCR Negative (Negative); Resp. Syncytial Virus PCR Negative (Negative)
[2021-07-10 11:49] LABS: SARS-CoV-2 by PCR (In House) Negative (Negative)
[2021-07-10 15:30] VITALS: BP 157/83; PULSE 87
== END 2021-07-10 16:21 | DRG 466 ==
LOC: EMEROOARM 14:14 → 3ANU 14:14 → SUATTDRO 16:39 → 3ANU 21:24 → SUATTDRO 06-23 14:32 → ICNU 06-24 19:08 → 4WAOSI 06-26 19:15
PROVIDERS: ADMIT Internal Medicine; ATTEND Internal Medicine